=== PATIENT | male | born 1995 | race American Indian/Alaskan Native ===

== ENCOUNTER 2018-08-15 10:34 | Inpatient (IN) | payer OTHER ==
--- NOTE | 2018-08-15 12:08 | XRay Report ---
AP CHEST: HISTORY: chest pain AP view of the chest demonstrates a normal mediastinal and cardiac contour with clear lungs and normal bony and soft tissue structures. IMPRESSION: Unremarkable AP chest.
[2018-08-15] MEDS ORDERED: PEPCID PO ONE (12:10)
[2018-08-15] MEDS ORDERED: ULTRAM PO ONE (12:10)
[2018-08-15 12:54] LABS: BUN/Creatinine Ratio 13; Blood Urea Nitrogen 12 mg/dL (9-20); Calcium 9.3 mg/dL (8.4-10.2); Hemolysis Index 5
[2018-08-15 12:55] LABS: Basophils % (Auto) 0.4 % (0.0-1.8); Eosinophils % (Auto) 0.5 % (0.0-4.3); Hematocrit 40.8 % (35.5-45.6); Hemoglobin 13.6 gm/dl (11.8-15.2); Lymphocytes # (Auto) 1.5 K/mm3 (1.2-5.4); Mean Corpuscular HGB Conc 33 % (32-34); Mean Corpuscular Volume 92 fl (84-94); Monocytes # (Auto) 0.6 K/mm3 (0.0-0.8); Monocytes % (Auto) 11.9 % (0.0-7.3); Platelet Count 241 K/mm3 (140-440); Red Blood Count 4.43 M/mm3 (3.65-5.03); Red Cell Distribution Width 12.8 % (13.2-15.2)
[2018-08-15] MEDS ORDERED: ASPIRIN PO ONE (13:07)
[2018-08-15 13:16] LABS: Amphetamine Screen,Urine PRESUMPTIVE NEGATIVE; Benzodiazepines Screen,Urine PRESUMPTIVE NEGATIVE; Cannabinoid Screen,Urine PRESUMPTIVE NEGATIVE; Cocaine Screen,Urine PRESUMPTIVE NEGATIVE; Methadone Screen,Urine PRESUMPTIVE NEGATIVE; Opiate Screen,Urine PRESUMPTIVE NEGATIVE
[2018-08-15 13:16] LABS: Chol/HDL Ratio 2.12 %; HDL Cholesterol 56 mg/dL (40-59); LDL Cholesterol,Direct 67 mg/dL (50-130)
--- NOTE | 2018-08-15 15:10 | Emergency Department Report ---
ED Chest Pain HPI - General Chief Complaint: Chest Pain Stated Complaint: CHEST PAIN Time Seen by Provider: 08/15/18 11:59 Source: patient Mode of arrival: Ambulatory Limitations: No Limitations - History of Present Illness Initial Comments: Patient is a 22-year-old -[place] male who was sent from correction secondary to chest pain. Patient states she's been having chest pain for almost a week. Patient describes the pain as "a fire in the left chest". Patient states this is been constant. Patient states at its worst as a 6 out of 10 at best at 3 out of 10. Patient states there is no change with position or exertion. Patient's pain is slightly worse with breathing. He denies cough, shortness of breath, nausea vomiting. Patient states he's had no drug use. The pain does not radiate. Patient had several EKGs done at the correction which were abnormal. Severity scale (0 -10): 4 - Related Data Allergies Allergy/AdvReac Type Severity Reaction Status Date / Time No Known Allergies Allergy Unverified 08/15/18 10:36 Heart Score - HEART Score History: Slightly suspicious EKG: Non-specific Age: < 45 Risk factors: No known risk factors Troponin: > 3x normal limit HEART Score: 3 ED Review of Systems ROS: Stated complaint: CHEST PAIN Other details as noted in HPI Comment: All other systems reviewed and negative ED Past Medical Hx - Past Medical History Previous Medical History?: No - Surgical History Past Surgical History?: No - Social History Smoking Status: Never Smoker Substance Use Type: None ED Physical Exam - General Limitations: No Limitations General appearance: alert, in no apparent distress - Head Head exam: Present: atraumatic, normocephalic - Eye Eye exam: Present: normal appearance, PERRL, EOMI - ENT ENT exam: Present: mucous membranes moist - Neck Neck exam: Present: normal inspection - Respiratory Respiratory exam: Present: normal lung sounds bilaterally. Absent: respiratory distress, wheezes, rales, rhonchi - Cardiovascular Cardiovascular Exam: Present: regular rate, normal rhythm. Absent: systolic murmur, diastolic murmur, rubs, gallop - GI/Abdominal GI/Abdominal exam: Present: soft, normal bowel sounds - Rectal Rectal exam: Present: deferred - Extremities Exam Extremities exam: Present: normal inspection - Back Exam Back exam: Present: normal inspection - Neurological Exam Neurological exam: Present: alert, oriented X3 - Psychiatric Psychiatric exam: Present: normal affect, normal mood - Skin Skin exam: Present: warm, dry, intact, normal color. Absent: rash ED Course Vital Signs 08/15/18 08/15/18 10:53 13:22 Temperature 98.1 F Pulse Rate 53 L Respiratory 18 15 Rate Blood Pressure 142/91 O2 Sat by Pulse 100 Oximetry - Reevaluation(s) Reevaluation #1: 08/15/18 12:30 That Cindi with cardiology has been consulted. EKG has been sent to him. JIM score - Jim Score Age > 65: (0) No Aspirin use within the Past 7 Days: (0) No 3 or more CAD Risk Factors: (0) No 2 or more Angina events in past 24 hrs: (0) No Known CAD with more than 50% Stenosis: (0) No Elevated Cardiac Markers: (1) Yes ST Deviation Greater than 0.5mm: (1) Yes JIM Score: 2 ED Medical Decision Making - Lab Data Result diagrams: 08/15/18 12:20 08/15/18 12:20 Lab Results 08/15/18 08/15/18 08/15/18 Range/Units 12:20 12:20 12:20 WBC 4.9 (4.5-11.0) K/mm3 RBC 4.43 (3.65-5.03) M/mm3 Hgb 13.6 (11.8-15.2) gm/dl Hct 40.8 (35.5-45.6) % MCV 92 (84-94) fl MCH 31 (28-32) pg MCHC 33 (32-34) % RDW 12.8 L (13.2-15.2) % Plt Count 241 (140-440) K/mm3 Lymph % (Auto) 30.0 (13.4-35.0) % [place] % (Auto) 11.9 H (0.0-7.3) % Eos % (Auto) 0.5 (0.0-4.3) % Baso % (Auto) 0.4 (0.0-1.8) % Lymph # 1.5 (1.2-5.4) K/mm3 [place] # 0.6 (0.0-0.8) K/mm3 Eos # 0.0 (0.0-0.4) K/mm3 Baso # 0.0 (0.0-0.1) K/mm3 Seg Neutrophils % 57.2 (40.0-70.0) % Seg Neutrophils # 2.8 (1.8-7.7) K/mm3 D-Dimer < 135.0 (0-234) ng/mlDDU Sodium 140 (137-145) mmol/L Potassium 3.7 (3.6-5.0) mmol/L Chloride 102.7 (98-107) mmol/L Carbon Dioxide 26 (22-30) mmol/L Anion Gap 15 mmol/L BUN 12 (9-20) mg/dL Creatinine 0.9 (0.8-1.5) mg/dL Estimated GFR > 60 ml/min BUN/Creatinine Ratio 13 % Glucose 102 H (75-100) mg/dL Calcium 9.3 (8.4-10.2) mg/dL Total Creatine Kinase (55-170) units/L Troponin T 1.300 H* (0.00-0.029) ng/mL Triglycerides 51 (2-149) mg/dL Cholesterol 119 (50-199) mg/dL LDL Cholesterol Direct 67 (50-130) mg/dL HDL Cholesterol 56 (40-59) mg/dL Cholesterol/HDL Ratio 2.12 % Urine Opiates Screen Urine Methadone Screen Ur Barbiturates Screen Ur Phencyclidine Scrn Ur Amphetamines Screen U Benzodiazepines Scrn Urine Cocaine Screen U Marijuana (THC) Screen Drugs of Abuse Note 08/15/18 08/15/18 Range/Units 13:20 Unknown WBC (4.5-11.0) K/mm3 RBC (3.65-5.03) M/mm3 Hgb (11.8-15.2) gm/dl Hct (35.5-45.6) % MCV (84-94) fl MCH (28-32) pg MCHC (32-34) % RDW (13.2-15.2) % Plt Count (140-440) K/mm3 Lymph % (Auto) (13.4-35.0) % [place] % (Auto) (0.0-7.3) % Eos % (Auto) (0.0-4.3) % Baso % (Auto) (0.0-1.8) % Lymph # (1.2-5.4) K/mm3 [place] # (0.0-0.8) K/mm3 Eos # (0.0-0.4) K/mm3 Baso # (0.0-0.1) K/mm3 Seg Neutrophils % (40.0-70.0) % Seg Neutrophils # (1.8-7.7) K/mm3 D-Dimer (0-234) ng/mlDDU Sodium (137-145) mmol/L Potassium (3.6-5.0) mmol/L Chloride (98-107) mmol/L Carbon Dioxide (22-30) mmol/L Anion Gap mmol/L BUN (9-20) mg/dL Creatinine (0.8-1.5) mg/dL Estimated GFR ml/min BUN/Creatinine Ratio % Glucose (75-100) mg/dL Calcium (8.4-10.2) mg/dL Total Creatine Kinase 898 H (55-170) units/L Troponin T (0.00-0.029) ng/mL Triglycerides (2-149) mg/dL Cholesterol (50-199) mg/dL LDL Cholesterol Direct (50-130) mg/dL HDL Cholesterol (40-59) mg/dL Cholesterol/HDL Ratio % Urine Opiates Screen Presumptive negative Urine Methadone Screen Presumptive negative Ur Barbiturates Screen Presumptive negative Ur Phencyclidine Scrn Presumptive negative Ur Amphetamines Screen Presumptive negative U Benzodiazepines Scrn Presumptive negative Urine Cocaine Screen Presumptive negative U Marijuana (THC) Screen Presumptive negative Drugs of Abuse Note Disclamer - EKG Data -: EKG Interpreted by Wy - EKG Data 08/15/18 15:09 Patient's EKG shows sinus rhythm a rate of 73 axis is normal intervals and normal. There is ST elevation approximately a millimeter in leads 2 and aVF which have a relatively straight contour. This is neither convex nor concave. Patient also has hyperacute QRS and T waves in leads V2 through V5. There is some ST elevation in these leads that approximately 2 mm. None of the leads have any ST depression. Time of interpretation is 1050. The interpretation is that there is not a STEMI present however this is an abnormal EKG - Radiology Data Radiology results: report reviewed (CXR WNL) - Medical Decision Making Patient is a 22-year-old male who is incarcerated who is presenting with several days ago continuous chest pain. Patient's clinical picture is very atypical for cardiac disease however his EKG does show some ST e levation and that is concerning for ischemia. Patient's EKG does not appear to be consistent with pericarditis. Dr. Puente with cardiology has seen the patient and has made a recommendation that heparin be started and they'll likely do a cardiac cath tomorrow. Dr. De La Cruz will admit the patient to the hospitalist service. Critical Care Time: Yes (30) Critical care attestation.: If time is entered above; I have spent that time in minutes in the direct care of this critically ill patient, excluding procedure time. ED Disposition Clinical Impression: NSTEMI (non-ST elevated myocardial infarction) Disposition: OP ADMIT IP TO THIS HOSP Is pt being admited?: Yes Does the pt Need Aspirin: No Condition: Stable
--- NOTE | 2018-08-15 15:13 | Consultation ---
History of Present Illness Consult date: 08/15/18 Consult reason: chest pain History of present illness: This is a 22 year old male who is currently incarcerated that was brought in with complaints of chest pain, intermittent for several days. There were no reports of unusual shortness of breath, no palpitations, no dizziness and he had no syncope. Patient denies prior medical history and reports he is active, plays basketball, without active chest pain. Initial cardiac enzymes shows an terrell vation of troponin. His ECG is sinus rhythm with inferolateral ST changes. A cardiac consultation has been requested for further evaluation. Past History Past Medical History: No medical history Medications and Allergies Allergies Allergy/AdvReac Type Severity Reaction Status Date / Time No Known Allergies Allergy Unverified 08/15/18 10:36 Active Meds: Active Medications Aspirin (Aspirin) 325 mg PO QDAY [facility] Atorvastatin Calcium (Lipitor) 40 mg PO QHS [facility] Enoxaparin Sodium (Lovenox) 70 mg SUB-Q Q12HR [facility] Metoprolol Tartrate (Lopressor) 25 mg PO BID [facility] Nitroglycerin (Nitro-Bid 2%) 1 inch TP QIDNTG [facility]; Protocol Pantoprazole Sodium (Protonix) 40 mg PO QDAY [facility] Physical Examination Vital Signs Temp Pulse Resp BP Pulse Ox 98.1 F 53 L 18 142/91 100 08/15/18 10:53 08/15/18 10:53 08/15/18 10:53 08/15/18 10:53 08/15/18 10:53 General appearance: no acute distress HEENT: Positive: PERRL Neck: Positive: trachea midline Cardiac: Positive: Reg Rate and Rhythm Lungs: Positive: Normal Breath Sounds Neuro: Positive: Grossly Intact Extremities: Absent: edema Results 08/15/18 12:20 08/15/18 12:20 Lipids 08/15/18 Range/Units 12:20 Triglycerides 51 (2-149) mg/dL Cholesterol 119 (50-199) mg/dL HDL Cholesterol 56 (40-59) mg/dL Cholesterol/HDL Ratio 2.12 % CBC 08/15/18 Range/Units 12:20 WBC 4.9 (4.5-11.0) K/mm3 RBC 4.43 (3.65-5.03) M/mm3 Hgb 13.6 (11.8-15.2) gm/dl Hct 40.8 (35.5-45.6) % Plt Count 241 (140-440) K/mm3 Lymph # 1.5 (1.2-5.4) K/mm3 [place] # 0.6 (0.0-0.8) K/mm3 Eos # 0.0 (0.0-0.4) K/mm3 Baso # 0.0 (0.0-0.1) K/mm3 Comprehensive Metabolic Panel 08/15/18 Range/Units 12:20 Sodium 140 (137-145) mmol/L Potassium 3.7 (3.6-5.0) mmol/L Chloride 102.7 (98-107) mmol/L Carbon Dioxide 26 (22-30) mmol/L BUN 12 (9-20) mg/dL Creatinine 0.9 (0.8-1.5) mg/dL Glucose 102 H (75-100) mg/dL Calcium 9.3 (8.4-10.2) mg/dL Assessment and Plan NSTEMI Plan: Topical nitrate, beta blockers, statin, protonix, aspirin and lovenox therapy. Left cardiac catheterization tomorrow morning. Patient agrees to proceed.
[2018-08-15 15:36] LABS: Creatine Kinase MB 49.5 ng/mL (0.0-4.0)
--- NOTE | 2018-08-15 17:06 | History and Physical Report ---
History of Present Illness Date of examination: 08/15/18 Date of admission: 08/15/18 15:13 Chief complaint: Left-sided chest pain for 1 week History of present illness: 22-year-old -E[place] male with no significant past medical history and a shelter inmate comes in for left-sided chest pain for about a week which is intermittent in nature. Patient refers to the pain as a fire in the left chest. Pain is about 6 on a scale of 1-10. No radiation. No shortness of breath or cough. No history of doing crack cocaine. Pain is dull in character and intermittent in nature. No recent travel Past Medical History Previous Medical History?: No Surgical History Past Surgical History?: No Social History Smoking Status: Never Smoker THC on a regular basis Family history Htn Review of Systems ROS: Stated complaint: CHEST PAIN Other details as noted in HPI Comment: All other systems reviewed and negative 14 point review of systems negative Past History Past Medical History: No medical history Medications and Allergies Allergies Allergy/AdvReac Type Severity Reaction Status Date / Time No Known Allergies Allergy Unverified 08/15/18 10:36 Home Medications Medication Instructions Recorded Confirmed Last Taken Type No Known Home Medications [No 08/15/18 08/15/18 Unknown History Reported Home Medications] Active Meds: Active Medications Aspirin (Aspirin) 325 mg PO QDAY [facility] Atorvastatin Calcium (Lipitor) 40 mg PO QHS [facility] Enoxaparin Sodium (Lovenox) 70 mg SUB-Q Q12HR [facility] Metoprolol Tartrate (Lopressor) 25 mg PO BID [facility] Nitroglycerin (Nitro-Bid 2%) 1 inch TP QIDNTG [facility]; Protocol Pantoprazole Sodium (Protonix) 40 mg PO QDAY [facility] Exam - Constitutional Vitals: Temp Pulse Resp BP Pulse Ox 98.1 F 58 L 21 106/59 100 08/15/18 10:53 08/15/18 16:31 08/15/18 15:06 08/15/18 15:06 08/15/18 15:06 General appearance: Present: no acute distress, well-nourished - EENT Eyes: Present: PERRL ENT: hearing intact, clear oral mucosa - Neck Neck: Present: supple, normal ROM - Respiratory Respiratory effort: normal Respiratory: bilateral: CTA - Cardiovascular Heart rate: 73 Rhythm: regular Heart Sounds: Present: S1 & S2. Absent: rub, click - Extremities Extremities: no ischemia, pulses intact, pulses symmetrical, No edema Extremity abnormal: edema Peripheral Pulses: within normal limits - Abdominal General gastrointestinal: Present: soft, non-tender, non-distended, normal bowel sounds Male genitourinary: Present: normal - Rectal Rectal Exam: deferred - Integumentary Integumentary: Present: clear, warm, dry - Musculoskeletal Musculoskeletal: gait normal, strength equal bilaterally - Psychiatric Psychiatric: appropriate mood/affect, intact judgment & insight - Neurologic Neurologic: CNII-XII intact, moves all extremities - Allied Health Allied health notes reviewed: nursing Results - Labs CBC & Chem 7: 08/15/18 12:20 08/15/18 12:20 Labs: Laboratory Last Values WBC 4.9 K/mm3 (4.5-11.0) 08/15/18 12:20 RBC 4.43 M/mm3 (3.65-5.03) 08/15/18 12:20 Hgb 13.6 gm/dl (11.8-15.2) 08/15/18 12:20 Hct 40.8 % (35.5-45.6) 08/15/18 12:20 MCV 92 fl (84-94) 08/15/18 12:20 MCH 31 pg (28-32) 08/15/18 12:20 MCHC 33 % (32-34) 08/15/18 12:20 RDW 12.8 % (13.2-15.2) L 08/15/18 12:20 Plt Count 241 K/mm3 (140-440) 08/15/18 12:20 Lymph % (Auto) 30.0 % (13.4-35.0) 08/15/18 12:20 [place] % (Auto) 11.9 % (0.0-7.3) H 08/15/18 12:20 Eos % (Auto) 0.5 % (0.0-4.3) 08/15/18 12:20 Baso % (Auto) 0.4 % (0.0-1.8) 08/15/18 12:20 Lymph # 1.5 K/mm3 (1.2-5.4) 08/15/18 12:20 [place] # 0.6 K/mm3 (0.0-0.8) 08/15/18 12:20 Eos # 0.0 K/mm3 (0.0-0.4) 08/15/18 12:20 Baso # 0.0 K/mm3 (0.0-0.1) 08/15/18 12:20 Seg Neutrophils % 57.2 % (40.0-70.0) 08/15/18 12:20 Seg Neutrophils # 2.8 K/mm3 (1.8-7.7) 08/15/18 12:20 < 135.0 ng/mlDDU (0-234) 08/15/18 12:20 Sodium 140 mmol/L (137-145) 08/15/18 12:20 Potassium 3.7 mmol/L (3.6-5.0) 08/15/18 12:20 Chloride 102.7 mmol/L (98-107) 08/15/18 12:20 Carbon Dioxide 26 mmol/L (22-30) 08/15/18 12:20 15 mmol/L 08/15/18 12:20 BUN 12 mg/dL (9-20) 08/15/18 12:20 0.9 mg/dL (0.8-1.5) 08/15/18 12:20 Estimated GFR > 60 ml/min 08/15/18 12:20 13 % 08/15/18 12:20 Glucose 102 mg/dL (75-100) H 08/15/18 12:20 Calcium 9.3 mg/dL (8.4-10.2) 08/15/18 12:20 829 units/L (55-170) H 08/15/18 14:52 CK-MB (CK-2) 49.5 ng/mL (0.0-4.0) H 08/15/18 14:52 CK-MB (CK-2) Rel Index 5.9 (0-4) H 08/15/18 14:52 1.300 ng/mL (0.00-0.029) H* 08/15/18 12:20 Triglycerides 51 mg/dL (2-149) 08/15/18 12:20 Cholesterol 119 mg/dL (50-199) 08/15/18 12:20 67 mg/dL (50-130) 08/15/18 12:20 56 mg/dL (40-59) 08/15/18 12:20 2.12 % 08/15/18 12:20 Presumptive negative 08/15/18 Unknown Presumptive negative 08/15/18 Unknown Ur Barbiturates Screen Presumptive negative 08/15/18 Unknown Ur Phencyclidine Scrn Presumptive negative 08/15/18 Unknown Ur Amphetamines Screen Presumptive negative 08/15/18 Unknown U Benzodiazepines Scrn Presumptive negative 08/15/18 Unknown Presumptive negative 08/15/18 Unknown U Marijuana (THC) Screen Presumptive negative 08/15/18 Unknown Disclamer 08/15/18 Unknown - Imaging and Cardiology EKG: report reviewed (sinus rhythm heart rate of [address] elevation and tall T waves in V2 V3 V4 V5) Chest x-ray: report reviewed (no acute findings) Abdominal x-ray: pending Assessment and Plan Advance Directives: Yes (Full code) VTE prophylaxis?: Chemical ( schedule.) Plan of care discussed with patient/family: Yes - Patient Problems (1) NSTEMI (non-ST elevated myocardial infarction) Current Visit: Yes Status: Acute Plan to address problem: Troponin and CK-MB are positive Patient being taken to Forensic Toxicologist tomorrow Cardiology consult appreciated Nitrates Lovenox Beta blockers Statins (2) Tetrahydrocannabinol (THC) use disorder, moderate, dependence Current Visit: Yes Status: Chronic Plan to address problem: Patient counseled (3) DVT prophylaxis Current Visit: Yes Status: Acute Plan to address problem: Patient on Lovenox and Protonix for GI prophylaxis
[2018-08-15] MEDS: NITRO-BID 2% TP SCH (17:59)
[2018-08-15] MEDS: LOPRESSOR PO SCH (21:24)
[2018-08-15] MEDS ORDERED: LOVENOX SUB-Q SCH (22:00)
[2018-08-16] MEDS: NITRO-BID 2% TP SCH (06:29)
[2018-08-16 06:44] LABS: INR 1.15 (0.87-1.13)
[2018-08-16 06:45] LABS: BUN/Creatinine Ratio 14; Blood Urea Nitrogen 13 mg/dL (9-20); Calcium 8.6 mg/dL (8.4-10.2); Hemolysis Index 1
[2018-08-16] MEDS ORDERED: ECOTRIN PO ONE (09:27)
[2018-08-16] MEDS ORDERED: NACL 0.9% 500 ML 500 ML ONE (09:28)
[2018-08-16] MEDS: ASPIRIN PO SCH (09:33)
[2018-08-16] MEDS ORDERED: NACL 0.9% 500 ML 500 ML IV SCH (10:00)
[2018-08-16] MEDS ORDERED: LOVENOX SUB-Q SCH (10:00)
[2018-08-16] MEDS ORDERED: VERSED ONE (11:33)
[2018-08-16] MEDS ORDERED: SUBLIMAZE ONE (11:33)
[2018-08-16] MEDS ORDERED: CALAN ONE (11:34)
[2018-08-16] MEDS ORDERED: HEPARIN/NS 5000 UNIT/500ML(CATH LAB) 1,000 ML IR ONE (11:34)
[2018-08-16] MEDS ORDERED: HEPARIN 10,000 UNITS/10 ML ONE (11:34)
[2018-08-16] MEDS ORDERED: XYLOCAINE 2% INFILTRATI ONE (11:34)
[2018-08-16] MEDS ORDERED: NITROGLYCERIN SYRINGE 3 ML ONE (11:34)
--- NOTE | 2018-08-16 12:38 | Progress Note ---
Assessment and Plan Myopericarditis, unknown cause Normal coronaries by LHC Normal LVEF by LV gram Recommendations: Continue aspirin 325 mg po daily Start colchicine 0.6 mg po bid for 3 months Discontinue lovenox, nitroglycerin, lipitor and metoprolol Echocardiogram Follow-up as outpatient in 1-2 weeks Subjective Date of service: 08/16/18 Principal diagnosis: Chest Pain Interval history: LHC performed via radial approach - no complications Objective Vital Signs Temp Pulse Pulse Resp BP BP Pulse Ox 08/16/18 08:56 0 F L 16 118/70 96 08/16/18 08:00 18 08/16/18 04:44 98.5 F 08/16/18 04:42 69 18 117/59 96 08/15/18 23:12 98.4 F 08/15/18 23:11 69 18 101/47 97 08/15/18 20:49 20 08/15/18 20:36 71 08/15/18 19:38 98.2 F 08/15/18 19:35 71 18 106/53 100 08/15/18 17:06 98.4 F 49 L 18 107/66 100 08/15/18 16:31 58 L 58 L 99 08/15/18 15:06 55 L 21 106/59 100 08/15/18 13:22 15 - Physical Examination HEENT: Positive: PERRL Neck: Positive: trachea midline Cardiac: Positive: Reg Rate and Rhythm Lungs: Positive: Normal Exam Neuro: Positive: Grossly Intact Extremities: Absent: edema - Labs and Meds Cardiac Enzymes 08/15/18 Range/Units 14:52 CK-MB (CK-2) 49.5 H (0.0-4.0) ng/mL Coagulation 08/16/18 Range/Units 05:19 PT 15.4 H (12.2-14.9) Sec. INR 1.15 H (0.87-1.13) Lipids 08/15/18 Range/Units 12:20 Triglycerides 51 (2-149) mg/dL Cholesterol 119 (50-199) mg/dL HDL Cholesterol 56 (40-59) mg/dL Cholesterol/HDL Ratio 2.12 % CBC 08/15/18 Range/Units 12:20 WBC 4.9 (4.5-11.0) K/mm3 RBC 4.43 (3.65-5.03) M/mm3 Hgb 13.6 (11.8-15.2) gm/dl Hct 40.8 (35.5-45.6) % Plt Count 241 (140-440) K/mm3 Lymph # 1.5 (1.2-5.4) K/mm3 [place] # 0.6 (0.0-0.8) K/mm3 Eos # 0.0 (0.0-0.4) K/mm3 Baso # 0.0 (0.0-0.1) K/mm3 Comprehensive Metabolic Panel 08/15/18 08/16/18 Range/Units 12:20 05:19 Sodium 140 140 (137-145) mmol/L Potassium 3.7 4.1 (3.6-5.0) mmol/L Chloride 102.7 101.6 (98-107) mmol/L Carbon Dioxide 26 26 (22-30) mmol/L BUN 12 13 (9-20) mg/dL Creatinine 0.9 0.9 (0.8-1.5) mg/dL Glucose 102 H 106 H (75-100) mg/dL Calcium 9.3 8.6 (8.4-10.2) mg/dL - Imaging and Cardiology EKG: report reviewed (sinus rhythm heart rate of [address] elevation and tall T waves in V2 V3 V4 V5)
--- NOTE | 2018-08-16 13:17 | Cardiac Catherization Report ---
INDICATION FOR PROCEDURE: Abnormal cardiac enzymes, rule out coronary artery disease. ORDERING PHYSICIAN: Char Puente MD PROCEDURES PERFORMED: 1. Selective left and right coronary angiography. 2. Left ventriculography. DESCRIPTION OF PROCEDURE: After obtaining the consent, the patient was draped using sterile technique. A 2% lidocaine was injected into the right wrist. A 6-Ind[place]ian vascular sheath was inserted into the right radial artery. A 6-[place] catheter was used to selectively engage left coronary artery. A 6-[place] catheter was used to selectively engage the right coronary artery. A 6-[place] catheter was used to perform a hand injected LV gram. No complications occurred during the procedure. Hemostasis was achieved at the end of the procedure using manual pressure. SPECIMEN REMOVED: None. ESTIMATED BLOOD LOSS: Minimal. No complications occurred during the procedure. TOTAL SEDATION ADMINISTERED: A 1 mg of IV Versed and 50 mcg of IV fentanyl. Physician and patient [id number] sedation start time 11:59 a.m. Physician and patient [id number] sedation stop time 12:11 p.m. Total sedation time was 12 minutes. FINDINGS: HEMODYNAMICS: Aortic pressure was 103/55, LV systolic pressure 126 mmHg, LVEDP 20 mmHg. CARDIAC STRUCTURES: The left ventricle is normal in size and systolic function. The left ventricular ejection fraction is estimated at 60%. CORONARY ANATOMY: 1. This is a right dominant circulation. 2. The left main is angiographically normal. 3. The LAD is angiographically normal. 4. The left circumflex artery is angiographically normal. 5. The right coronary artery is angiographically normal. IMPRESSION: 1. Angiographically normal coronary circulation. 2. Normal left ventricular ejection fraction. 3. LVEDP measured at 20 mmHg. RECOMMENDATIONS: Continue medical therapy for a myopericarditis. JOB# [id number]/SAVITA
[2018-08-16] MEDS: PROTONIX PO SCH (13:21)
--- NOTE | 2018-08-16 16:17 | Progress Note ---
Assessment and Plan Assessment and plan: 22-year-old -[place] male with no significant past medical history and a detention inmate comes in for left-sided chest pain for about a week which is intermittent in nature. Patient refers to the pain as a fire in the left chest. Pain is about 6 on a scale of 1-10. No radiation. No shortness of breath or cough. No history of doing crack cocaine. Pain is dull in character and intermittent in nature. No recent travel Chest pain, likely due to pericarditis - ST abnormality - Patient was initially treated with ACS protocol and cardiology consulted and did cath, clean coronaries - ACS protocol discontinued - Patient has pericarditis and he is on colchicine and aspirin Elevated troponin - Likely due to pericarditis - Patient will have echo DVT prophylaxis Disposition - We'll discharge likely tomorrow after echo History Interval history: Patient was seen and evaluated this morning, patient denied chest pain. No SOB. Hospitalist Physical - Physical exam Narrative exam: Not in cardiopulmonary distress. The patient appeared well nourished and normally developed. Vital signs as documented. Head exam is unremarkable. No scleral icterus . Neck is without jugular venous distension, thyromegaly, or carotid bruits. Lungs are clear to auscultation. Cardiac exam reveals regular rate and Rhythm. Abdominal exam reveals normal bowel sounds. Extremities are nonedematous and both femoral and pedal pulses are normal. CHINESE TEACHER: Alert and oriented 3. No focal weakness. - Constitutional Vitals: Temp Pulse Resp BP Pulse Ox 98 F 67 16 124/71 97 08/16/18 12:49 08/16/18 12:49 08/16/18 12:49 08/16/18 12:49 08/16/18 12:49 General appearance: Present: no acute distress, well-nourished Results - Labs CBC & Chem 7: 08/15/18 12:20 08/16/18 05:19 Labs: Laboratory Last Values WBC 4.9 K/mm3 (4.5-11.0) 08/15/18 12:20 RBC 4.43 M/mm3 (3.65-5.03) 08/15/18 12:20 Hgb 13.6 gm/dl (11.8-15.2) 08/15/18 12:20 Hct 40.8 % (35.5-45.6) 08/15/18 12:20 MCV 92 fl (84-94) 08/15/18 12:20 MCH 31 pg (28-32) 08/15/18 12:20 MCHC 33 % (32-34) 08/15/18 12:20 RDW 12.8 % (13.2-15.2) L 08/15/18 12:20 Plt Count 241 K/mm3 (140-440) 08/15/18 12:20 Lymph % (Auto) 30.0 % (13.4-35.0) 08/15/18 12:20 [place] % (Auto) 11.9 % (0.0-7.3) H 08/15/18 12:20 Eos % (Auto) 0.5 % (0.0-4.3) 08/15/18 12:20 Baso % (Auto) 0.4 % (0.0-1.8) 08/15/18 12:20 Lymph # 1.5 K/mm3 (1.2-5.4) 08/15/18 12:20 [place] # 0.6 K/mm3 (0.0-0.8) 08/15/18 12:20 Eos # 0.0 K/mm3 (0.0-0.4) 08/15/18 12:20 Baso # 0.0 K/mm3 (0.0-0.1) 08/15/18 12:20 Seg Neutrophils % 57.2 % (40.0-70.0) 08/15/18 12:20 Seg Neutrophils # 2.8 K/mm3 (1.8-7.7) 08/15/18 12:20 PT 15.4 Sec. (12.2-14.9) H 08/16/18 05:19 INR 1.15 (0.87-1.13) H 08/16/18 05:19 < 135.0 ng/mlDDU (0-234) 08/15/18 12:20 Sodium 140 mmol/L (137-145) 08/16/18 05:19 Potassium 4.1 mmol/L (3.6-5.0) 08/16/18 05:19 Chloride 101.6 mmol/L (98-107) 08/16/18 05:19 Carbon Dioxide 26 mmol/L (22-30) 08/16/18 05:19 17 mmol/L 08/16/18 05:19 BUN 13 mg/dL (9-20) 08/16/18 05:19 0.9 mg/dL (0.8-1.5) 08/16/18 05:19 Estimated GFR > 60 ml/min 08/16/18 05:19 14 % 08/16/18 05:19 Glucose 106 mg/dL (75-100) H 08/16/18 05:19 POC Glucose 60 (70-105) L 08/15/18 18:05 Calcium 8.6 mg/dL (8.4-10.2) 08/16/18 05:19 829 units/L (55-170) H 08/15/18 14:52 CK-MB (CK-2) 49.5 ng/mL (0.0-4.0) H 08/15/18 14:52 CK-MB (CK-2) Rel Index 5.9 (0-4) H 08/15/18 14:52 1.420 ng/mL (0.00-0.029) H* 08/16/18 05:19 Triglycerides 51 mg/dL (2-149) 08/15/18 12:20 Cholesterol 119 mg/dL (50-199) 08/15/18 12:20 67 mg/dL (50-130) 08/15/18 12:20 56 mg/dL (40-59) 08/15/18 12:20 2.12 % 08/15/18 12:20 Presumptive negative 08/15/18 Unknown Presumptive negative 08/15/18 Unknown Ur Barbiturates Screen Presumptive negative 08/15/18 Unknown Ur Phencyclidine Scrn Presumptive negative 08/15/18 Unknown Ur Amphetamines Screen Presumptive negative 08/15/18 Unknown U Benzodiazepines Scrn Presumptive negative 08/15/18 Unknown Presumptive negative 08/15/18 Unknown U Marijuana (THC) Screen Presumptive negative 08/15/18 Unknown Disclamer 08/15/18 Unknown Active Medications - Current Medications Current Medications: Generic Name Dose Route Start Last Admin Trade Name Freq PRN Reason Stop Dose Admin Aspirin 325 mg 08/16/18 10:00 08/16/18 09:33 Aspirin PO 325 mg QDAY CECE Administration Colchicine 0.6 mg 08/16/18 22:00 Colchicine PO BID CECE Sodium Chloride 500 mls @ 50 mls/hr 08/16/18 10:00 Nacl 0.9% 500 Ml IV DIRECT CECE Pantoprazole Sodium 40 mg 08/16/18 10:00 08/16/18 13:21 Protonix PO 40 mg QDAY CECE Administration
[2018-08-16] MEDS: COLCHICINE PO SCH (21:49)
[2018-08-16] MEDS: HEPARIN SUB-Q SCH (21:49)
[2018-08-17 06:33] LABS: BUN/Creatinine Ratio 14; Blood Urea Nitrogen 14 mg/dL (9-20); Calcium 8.8 mg/dL (8.4-10.2); Hemolysis Index 6
[2018-08-17] MEDS: LOPRESSOR PO SCH (10:04)
[2018-08-17] MEDS: NITRO-BID 2% TP SCH (10:05)
--- NOTE | 2018-08-17 11:04 | Discharge Summary ---
Providers - Providers Date of Admission: 08/15/18 15:13 Attending physician: SURYA CEVALLOS MD [facility] Reason for admission: Chest pain, myopericarditis Condition: Stable Pertinent studies: Cardiac cath clean coronaries, well-preserved ejection fraction Echo is pending Hospital course: 22-year-old -Martiniquais male with no significant past medical history and a alf inmate comes in for left-sided chest pain for about a week which is intermittent in nature. Patient refers to the pain as a fire in the left chest. Pain is about 6 on a scale of 1-10. No radiation. No shortness of breath or cough. No history of doing crack cocaine. Pain is dull in character and intermittent in nature. No recent travel Chest pain due to myopericarditis - ST abnormality - Cardiology consulted and did cardiac cath showed clean coronaries, normal left ventricular ejection fraction Patient was initially started treatment for NSTMI and after cath patient was diagnosed with myopericarditis and stopped treatment for NSTEMI and put the patient on colchicine and aspirin. Patient didn't have any chest pain. Patient cleared by cardiology for discharge. Patient had a stress test done this morning and per cardiology he doesn't need to wait for his echo and will be followed in the office in one week. Patient was hemodynamically stable and appropriate medication scripts were given at the time of discharge. Disposition: DC-01 TO HOME OR SELFCARE Time spent for discharge: 32 minutes - Discharge Diagnoses (1) Pericarditis Status: Acute (2) Myopericarditis Status: Acute Core Measure Documentation - Palliative Care Palliative Care/ Comfort Measures: Not Applicable - Core Measures Any of the following diagnoses?: none Exam - Physical Exam Narrative exam: Not in cardiopulmonary distress. The patient appeared well nourished and normally developed. Vital signs as documented. Head exam is unremarkable. No scleral icterus . Neck is without jugular venous distension, thyromegaly, or carotid bruits. Lungs are clear to auscultation. Cardiac exam reveals regular rate and Rhythm. Abdominal exam reveals normal bowel sounds. Extremities are nonedematous and both femoral and pedal pulses are normal. 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 No focal weakness. - Constitutional Vitals: Temp Pulse Resp BP Pulse Ox 98.7 F 58 L 18 124/58 96 08/17/18 07:39 08/17/18 07:39 08/17/18 07:39 08/17/18 07:39 08/17/18 07:39 Plan Activity: no restrictions Weight Bearing Status: Full Weight Bearing Diet: regular Follow up with: FARZAD DAVIS MD [Primary Care Provider] - 7 Days Prescriptions: Aspirin 325 mg PO QDAY #30 tablet Colchicine 0.6 mg PO BID #60 capsule Pantoprazole [Protonix TAB] 40 mg PO QDAY #30 tablet
[2018-08-17 11:08] VITALS: BP 113/60
[2018-08-17] MEDS: COLCHICINE PO SCH (11:32)
[2018-08-17] MEDS: PROTONIX PO SCH (11:32)
[2018-08-17] MEDS: ASPIRIN PO SCH (11:32)
[2018-08-17] MEDS: HEPARIN SUB-Q SCH (11:32)
--- NOTE | 2018-08-17 13:06 | Progress Note ---
Assessment and Plan - Patient Problems (1) Chest pain Current Visit: Yes Status: Acute Plan to address problem: Patient presented with chest pain and elevated cardiac enzymes, coronaries angiographically normal cardiac catheterization. Well-preserved left ventric ular systolic function. Patient is stable for discharge back to the skilled nursing, on medical therapy is outlined on prior cardiology notes. Echocardiogram report will be followed up as an outpatient in one week. Subjective Date of service: 08/17/18 Principal diagnosis: Chest Pain Interval history: Patient is comfortable, no further chest pain. No complications from the cardiac catheterization. Objective Vital Signs Temp Pulse Resp BP Pulse Ox 08/17/18 11:07 97.9 F 58 L 18 113/60 94 08/17/18 07:39 98.7 F 58 L 18 124/58 96 08/17/18 04:13 98.0 F 75 18 117/52 98 08/16/18 23:52 98.0 F 57 L 18 126/63 96 08/16/18 20:15 72 08/16/18 19:34 98.6 F 72 18 112/60 97 - Physical Examination General: No Apparent Distress HEENT: Positive: PERRL Neck: Positive: trachea midline Cardiac: Positive: Reg Rate and Rhythm Lungs: Positive: clear to auscultation Neuro: Positive: Grossly Intact Abdomen: Positive: Soft Skin: Positive: Clear Extremities: Absent: edema - Labs and Meds Comprehensive Metabolic Panel 08/17/18 Range/Units 05:26 Sodium 141 (137-145) mmol/L Potassium 4.5 (3.6-5.0) mmol/L Chloride 103.5 (98-107) mmol/L Carbon Dioxide 25 (22-30) mmol/L BUN 14 (9-20) mg/dL Creatinine 1.0 (0.8-1.5) mg/dL Glucose 99 (75-100) mg/dL Calcium 8.8 (8.4-10.2) mg/dL - Imaging and Cardiology EKG: report reviewed (sinus rhythm heart rate of [address] elevation and tall T waves in V2 V3 V4 V5)
== END 2018-08-17 12:15 | DRG 287 ==
LOC: EEVIPCON 10:34 → ED 10:34 → 4A 15:13
PROVIDERS: ADMIT Internal Medicine; ATTEND Internal Medicine
PROC: 4A023N7 Measurement of Cardiac Sampling and Pressure, Left Heart, Percutaneous Approach (ICD-10-PCS; principal; 2018-08-16)
PROC: B2111ZZ Fluoroscopy of Multiple Coronary Arteries using Low Osmolar Contrast (ICD-10-PCS; 2018-08-16)
PROC: B2151ZZ Fluoroscopy of Left Heart using Low Osmolar Contrast (ICD-10-PCS; 2018-08-16)
DX: I31.9 Disease of pericardium, unspecified (principal); F12.20 Cannabis dependence, uncomplicated; Z82.49 Family history of ischemic heart disease and other diseases of the circulatory system
CPT/HCPCS: 36415; 71045; 80048; 80061; 80307; 82550; 82553; 82962; 84484; 85025; 85379; 85610; 93005; 93010; 93306; 93458; G0378; A9270-GY; C1887; C1894; J1644; J1650; J2250; J3010; J7040; Q9967